=== PATIENT | female | born 1940 | race Caucasian/White ===

== ENCOUNTER 2017-01-16 12:04 | Day surgery (SDC) | payer MEDICARE ==
[~2017-01-16] VITALS: Ht 168.9 cm; Wt 88.5 kg
[~2017-01-16 12:04] MED LIST: Sodium Chloride LOK Flush 10 mL Syringe IV PRN; TEN50 PO; fentaNYL-PF 50 mCg/mL 2 mL Inj IVPUSH PRN
[2017-01-16] MEDS ORDERED: fentaNYL-PF 50 mCg/mL 2 mL Inj IVPUSH ONE (12:05)
[2017-01-16] MEDS ORDERED: ASPI325T32 PO (12:22)
[2017-01-16 12:23] VITALS: BP 148/55; PULSE 62; RESP 16; O2SAT 95
[2017-01-16] MEDS ORDERED: 0.9% Sodium Chloride 1,000 ML IV ONE (14:19)
[2017-01-16 14:26] VITALS: BP 103/43; PULSE 64; RESP 16; O2SAT 95
[2017-01-16 14:36] VITALS: BP 93/36; PULSE 73; RESP 16; O2SAT 94
[2017-01-16 14:46] VITALS: BP 114/57; PULSE 68; RESP 16; O2SAT 95
--- NOTE | 2017-01-17 00:03 | ENDO ---
[address] [address] ENDOSCOPY PROCEDURE PATIENT: JEREMIAH CAMPOS : 1940 MR#: [id number] ADMIT: 01/16/2017 JOB ID: [id number] DATE OF SERVICE: 01/16/2017 TITLE OF OPERATION: Colonoscopy. PREOPERATIVE DIAGNOSIS: Guaiac-positive stools. POSTOPERATIVE DIAGNOSIS(ES): 1. Small internal hemorrhoids. 2. 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 ANESTHESIA: Fentanyl 100 mcg, Versed 4 mg IV administered. COMPLICATIONS: None. BLOOD LOSS: Minimal. DESCRIPTION OF PROCEDURE: After risks and benefits were explained to the patient, informed consent was obtained. After anesthesia administered, a colonoscope was inserted from the rectum to the cecum. Mucosa was carefully examined. Prep of the patient was fair. After procedure done, the scope withdrawn, procedure terminated. FINDINGS: Upon inspection of the anus, no masses, hemorrhoids, ulcers, or fissures that were seen. Throughout the entire examination, there were no polyps, masses that were seen. There was a possible AVM seen in the cecum that looked elongated which had an atypical appearance. Given the fact that the patient had no overt signs of bleeding; therefore, this vascular lesion was left alone. Retroflexion showed prominent small internal hemorrhoids. IMPRESSIONS: 1. Small internal hemorrhoids. 2. 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 RECOMMENDATIONS: 1. High fiber diet. 2. Stool softener as needed. 3. Repeat colonoscopy in 10 years for colorectal cancer screening.
== END 2017-01-16 23:59 | disposition home or self-care (01) ==
LOC: END 12:04
PROVIDERS: ATTEND Internal Medicine Gastroenterology
DX: K64.8 Other hemorrhoids (principal); R19.5 Other fecal abnormalities; I10 Essential (primary) hypertension; J45.909 Unspecified asthma, uncomplicated; Z85.51 Personal history of malignant neoplasm of bladder
CPT/HCPCS: 45378; G0500; J2250; J3010; J7030